=== PATIENT | male | born 1950 | race African-American/Black ===

== ENCOUNTER 2020-12-21 12:23 | Inpatient (IN) | payer MEDICARE, MEDICAID ==
[~2020-12-21] VITALS: Ht 182.9 cm; Wt 81.2 kg
[2020-12-21 15:26] LABS: BASOPHILS % 0.7 % (0.0-2.0); EOSINOPHILS % 3.4 % (0.0-5.0); HEMATOCRIT. 36.9 % (42.0-52.0); HEMOGLOBIN. 11.9 g/dL (14.0-18.0); MEAN CORPUSCULAR HEMOGLOBIN 30.4 pg (28.0-32.0); MEAN PLATELET VOLUME 9.2 fl (7.4-10.4); MONOCYTES % 13.1 % (2.0-8.0); NEUTROPHILS % 63.8 % (40.0-76.0); PLATELET 179 x1000/uL (130-400); RED BLOOD CELL COUNT 3.93 mill/uL (4.7-6.1); RED CELL DISTRIBUTION WIDTH 19.2 % (11.6-14.6)
[2020-12-21 15:31] LABS: CHLORIDE 113 mEq/L (98-107)
[2020-12-21 15:49] LABS: INR 1.1; PROTHROMBIN TIME 11.7 sec (9.6-11.0)
[2020-12-21] MEDS ORDERED: SODIUM CHLORIDE 0.9% 1,000 ML IV ONE (16:00)
[2020-12-21] MEDS ORDERED: DILTIAZEM HCL 5MG/ML 5ML VIAL IV ONE (16:15)
[2020-12-21] MEDS ORDERED: DILTIAZEM HCL 90MG TABLET PO ONE (16:15)
[2020-12-21 16:18] LABS: CLARITY URINE CLEAR (CLEAR); COLOR URINE YELLOW (YELLOW); KETONES URINE TRACE (NEGATIVE); LEUKOCYTE ESTERASE URINE 1+ (NEGATIVE); NITRITE URINE POSITIVE (NEGATIVE); OCCULT BLOOD URINE NEGATIVE (NEGATIVE); PROTEIN URINE 2+ (NEGATIVE); UROBILINOGEN URINE 0.2 E.U./dL (0.2-1.0)
[2020-12-21] MEDS ORDERED: ASPIRIN 81MG TABLET PO ONE (20:15)
[2020-12-21] MEDS ORDERED: DOCUSATE SODIUM 100MG CAPSULE PO PRN (21:15)
[2020-12-21] MEDS ORDERED: ONDANSETRON HCL 4MG/2ML INJ IV PRN (21:15)
[2020-12-21] MEDS ORDERED: GUAIFENESIN 200MG/10ML SUGAR FREE UDC PO PRN (21:15)
[2020-12-21] MEDS ORDERED: CLONIDINE 0.1MG TABLET PO PRN (21:15)
[2020-12-21] MEDS ORDERED: ACETAMINOPHEN 325MG TABLET PO PRN (21:15)
[2020-12-21] MEDS ORDERED: MAGNESIUM/ALUMINUM HYDROXIDE/SIMETHICONE 30ML UDC PO PRN (21:15)
[2020-12-21] MEDS: AZITHROMYCIN 500 MG in DEXT 5% WATER 250 ML IV SCH (22:00)
[2020-12-22] MEDS: MULTIVITAMINS,THER W-MINERALS TABLET PO SCH ×2 (00:44→10:25)
[2020-12-22] MEDS: ENOXAPARIN 40MG/0.4ML SYR SUBCUT SCH (00:45)
[2020-12-22] MEDS: CEFTRIAXONE 1 G PREMIX 50 ML IV SCH ×2 (00:45→01:07)
[2020-12-22] MEDS: SODIUM CHLORIDE 0.9% 1,000 ML IV SCH ×2 (00:46→10:27)
[2020-12-22] MEDS: THIAMINE HCL 100MG TABLET PO SCH ×2 (00:46→09:00)
[2020-12-22] MEDS: LORAZEPAM 2MG/ML CPJ IV PRN (00:47)
[2020-12-22 04:59] LABS: CHLORIDE 115 mEq/L (98-107)
[2020-12-22 05:09] LABS: HDL CHOLESTEROL 44 mg/dL (40-59)
[2020-12-22 05:10] LABS: LDL CHOLESTEROL 75 mg/dL (5-100)
[2020-12-22] MEDS ORDERED: ASPIRIN 81MG EC TABLET PO SCH (09:00)
[2020-12-22] MEDS ORDERED: METOPROLOL TARTRATE 25MG TABLET PO SCH (09:00)
[2020-12-22] MEDS: FOLIC ACID 1MG TABLET PO SCH (10:25)
[2020-12-23] MEDS: FUROSEMIDE 40MG/4ML VIAL IVP SCH ×3 (00:31→17:53)
[2020-12-23] MEDS: SODIUM CHLORIDE 0.9% 1,000 ML IV SCH ×3 (00:48→21:25)
[2020-12-23] MEDS: AZITHROMYCIN 500 MG in DEXT 5% WATER 250 ML IV SCH ×2 (00:49→23:58)
[2020-12-23] MEDS: ENOXAPARIN 40MG/0.4ML SYR SUBCUT SCH ×2 (00:57→21:24)
[2020-12-23] MEDS: PANTOPRAZOLE 40MG DR TABLET PO SCH ×3 (01:37→21:24)
[2020-12-23] MEDS: LORAZEPAM 2MG/ML CPJ IV PRN ×2 (02:49→21:14)
[2020-12-23 08:30] VITALS: BP 133/98
[2020-12-23] MEDS ORDERED: METOPROLOL TARTRATE 25MG TABLET PO SCH (09:00)
[2020-12-23] MEDS: CEFTRIAXONE 1,000 MG in DEXTROSE 5% WATER 50 ML IV SCH (10:08)
[2020-12-23] MEDS: THIAMINE HCL 100MG TABLET PO SCH (10:08)
[2020-12-23] MEDS: FOLIC ACID 1MG TABLET PO SCH (10:09)
[2020-12-23] MEDS: MULTIVITAMINS,THER W-MINERALS TABLET PO SCH (10:09)
[2020-12-23 12:00] VITALS: BP_SYST 119; BP_SYST 133; BP_DIAS 89; BP_DIAS 98
[2020-12-23] MEDS: METOPROLOL TARTRATE 50MG TABLET PO SCH ×2 (15:07→21:24)
[2020-12-23 16:00] VITALS: BP 121/94
[2020-12-23 18:34] LABS: CHLORIDE 111 mEq/L (98-107)
[2020-12-23 20:00] VITALS: BP 114/82
[2020-12-23] MEDS ORDERED: PNEUMOCOCCAL 23-VAL P-SAC VAC 0.5 ML IM ONE (20:30)
[2020-12-23 21:04] LABS: VITAMIN B12 SERUM 593 pg/mL (211-911)
[2020-12-24] VITALS (7 sets, daily range): BP systolic 114–137; BP diastolic 82–99
[2020-12-24] MEDS: LORAZEPAM 2MG/ML CPJ IV PRN ×4 (01:16→22:34)
[2020-12-24] MEDS: FUROSEMIDE 40MG/4ML VIAL IVP SCH (05:14)
[2020-12-24] MEDS: PANTOPRAZOLE 40MG DR TABLET PO SCH ×2 (05:41→20:27)
[2020-12-24] MEDS: CEFTRIAXONE 1,000 MG in DEXTROSE 5% WATER 50 ML IV SCH (09:04)
[2020-12-24] MEDS: MULTIVITAMINS,THER W-MINERALS TABLET PO SCH (09:05)
[2020-12-24] MEDS: THIAMINE HCL 100MG TABLET PO SCH (09:05)
[2020-12-24] MEDS: METOPROLOL TARTRATE 50MG TABLET PO SCH ×2 (09:05→20:27)
[2020-12-24] MEDS: FOLIC ACID 1MG TABLET PO SCH (09:05)
[2020-12-24] MEDS: FUROSEMIDE 40MG TABLET PO SCH (18:21)
[2020-12-24] MEDS: SODIUM CHLORIDE 0.9% 1,000 ML IV SCH (18:21)
[2020-12-24] MEDS: ENOXAPARIN 40MG/0.4ML SYR SUBCUT SCH (20:27)
[2020-12-24] MEDS: AZITHROMYCIN 500 MG in DEXT 5% WATER 250 ML IV SCH (23:01)
[2020-12-24] MEDS: DIPHENHYDRAMINE 50MG/ML VIAL IV PRN (23:21)
[2020-12-25] VITALS: BP 131/81
[2020-12-25] MEDS: SODIUM CHLORIDE 0.9% 1,000 ML IV SCH ×2 (01:44→18:52)
[2020-12-25] MEDS: LORAZEPAM 2MG/ML CPJ IV PRN ×4 (03:27→20:37)
[2020-12-25 04:00] VITALS: BP 142/78
[2020-12-25] MEDS: FUROSEMIDE 40MG TABLET PO SCH ×2 (05:07→18:51)
[2020-12-25] MEDS: PANTOPRAZOLE 40MG DR TABLET PO SCH ×2 (05:40→21:03)
[2020-12-25] MEDS: METOPROLOL TARTRATE 5MG/5ML VIAL IV SCH ×2 (06:08→11:29)
[2020-12-25 08:00] VITALS: BP 120/100
[2020-12-25] MEDS: MULTIVITAMINS,THER W-MINERALS TABLET PO SCH (10:28)
[2020-12-25] MEDS: FOLIC ACID 1MG TABLET PO SCH (10:28)
[2020-12-25] MEDS: THIAMINE HCL 100MG TABLET PO SCH (10:28)
[2020-12-25] MEDS ORDERED: METOPROLOL TARTRATE 25MG TABLET PO NR (10:44)
[2020-12-25] MEDS ORDERED: METOPROLOL TARTRATE 5MG/5ML VIAL IV PRN (11:15)
[2020-12-25 12:00] VITALS: BP 135/104
[2020-12-25] MEDS ORDERED: DILTIAZEM HCL 30MG TABLET PO SCH (12:00)
[2020-12-25] MEDS: CEFTRIAXONE 1,000 MG in DEXTROSE 5% WATER 50 ML IV SCH (13:33)
[2020-12-25 16:00] VITALS: BP 130/88
[2020-12-25 20:00] VITALS: BP 141/83
[2020-12-25] MEDS: ENOXAPARIN 40MG/0.4ML SYR SUBCUT SCH (21:03)
[2020-12-25] MEDS: METOPROLOL TARTRATE 50MG TABLET PO SCH (21:04)
[2020-12-25] MEDS: AZITHROMYCIN 500 MG in DEXT 5% WATER 250 ML IV SCH (22:08)
[2020-12-26] VITALS: BP 122/99
[2020-12-26] MEDS: LORAZEPAM 2MG/ML CPJ IV PRN ×3 (00:39→11:29)
[2020-12-26 04:00] VITALS: BP 134/89
[2020-12-26] MEDS: FUROSEMIDE 40MG TABLET PO SCH ×2 (05:45→17:01)
[2020-12-26] MEDS: PANTOPRAZOLE 40MG DR TABLET PO SCH ×2 (05:45→21:28)
[2020-12-26] MEDS: SODIUM CHLORIDE 0.9% 1,000 ML IV SCH ×2 (05:46→21:32)
[2020-12-26 08:00] VITALS: BP 138/95
[2020-12-26] MEDS: MULTIVITAMINS,THER W-MINERALS TABLET PO SCH (08:59)
[2020-12-26] MEDS: THIAMINE HCL 100MG TABLET PO SCH (08:59)
[2020-12-26] MEDS: FOLIC ACID 1MG TABLET PO SCH (08:59)
[2020-12-26] MEDS: DIPHENHYDRAMINE 50MG/ML VIAL IV PRN ×2 (09:03→15:37)
[2020-12-26] MEDS: METOPROLOL TARTRATE 50MG TABLET PO SCH (09:05)
[2020-12-26 12:00] VITALS: BP 146/89
[2020-12-26] MEDS ORDERED: DIGOXIN 500MCG/2ML AMP IV NR (13:00)
[2020-12-26] MEDS: METOPROLOL TARTRATE 100MG TABLET PO SCH ×2 (14:04→21:29)
[2020-12-26 16:00] VITALS: BP_SYST 137; BP_DIAS 90; BP_DIAS 91
[2020-12-26 20:00] VITALS: BP 116/95
[2020-12-26] MEDS: ATORVASTATIN CALCIUM 40MG TABLET PO SCH (21:28)
[2020-12-26] MEDS: ENOXAPARIN 40MG/0.4ML SYR SUBCUT SCH (21:29)
[2020-12-26] MEDS ORDERED: AMIODARONE HCL 200 MG TABLET PO NR (23:00)
[2020-12-26] MEDS ORDERED: AMIODARONE HCL 150 MG in DEXT 5% WATER 100 ML IV NR (23:30)
[2020-12-27] VITALS: BP 133/100
[2020-12-27] MEDS ORDERED: POTASSIUM CHLORIDE 20MEQ/PACKET PO NR (01:15)
[2020-12-27] MEDS ORDERED: MAGNESIUM 2 G PREMIX 50 ML IV ONE (02:00)
[2020-12-27] MEDS: FUROSEMIDE 40MG TABLET PO SCH (05:50)
[2020-12-27] MEDS: PANTOPRAZOLE 40MG DR TABLET PO SCH ×2 (05:50→23:24)
[2020-12-27 08:00] VITALS: BP 128/100
[2020-12-27] MEDS ORDERED: AMIODARONE HCL 900 MG in DEXT 5% WATER 482 ML IV SCH (08:30)
[2020-12-27] MEDS: MULTIVITAMINS,THER W-MINERALS TABLET PO SCH (09:13)
[2020-12-27] MEDS: ASPIRIN 81MG TABLET PO SCH (09:13)
[2020-12-27] MEDS: FOLIC ACID 1MG TABLET PO SCH (09:13)
[2020-12-27] MEDS: THIAMINE HCL 100MG TABLET PO SCH (09:13)
[2020-12-27] MEDS: AMIODARONE HCL 200 MG TABLET PO SCH ×2 (09:14→23:25)
[2020-12-27] MEDS: SODIUM CHLORIDE 0.9% 1,000 ML IV SCH (09:14)
[2020-12-27] MEDS: METOPROLOL TARTRATE 100MG TABLET PO SCH ×2 (09:18→23:25)
[2020-12-27] MEDS ORDERED: LORAZEPAM 2MG/ML CPJ IV PRN (11:45)
[2020-12-27 12:00] VITALS: BP 116/76
[2020-12-27 16:00] VITALS: BP 114/82
[2020-12-27 20:00] VITALS: BP 129/89
[2020-12-27] MEDS: ATORVASTATIN CALCIUM 40MG TABLET PO SCH (23:25)
[2020-12-27] MEDS: ENOXAPARIN 40MG/0.4ML SYR SUBCUT SCH (23:26)
[2020-12-28] VITALS: BP 127/90
[2020-12-28 04:00] VITALS: BP 139/90
[2020-12-28] MEDS: PANTOPRAZOLE 40MG DR TABLET PO SCH (06:00)
[2020-12-28 08:00] VITALS: BP 115/87
[2020-12-28] MEDS ORDERED: FUROSEMIDE 40MG TABLET PO SCH (09:00)
[2020-12-28] MEDS ORDERED: APIXABAN 2.5 MG TABLET PO SCH (10:00)
[2020-12-28] MEDS ORDERED: APIXABAN 5 MG TABLET PO SCH (10:01)
[2020-12-28] MEDS: AMIODARONE HCL 200 MG TABLET PO SCH (10:14)
[2020-12-28] MEDS: ASPIRIN 81MG TABLET PO SCH (10:14)
[2020-12-28] MEDS: THIAMINE HCL 100MG TABLET PO SCH (10:16)
[2020-12-28] MEDS: MULTIVITAMINS,THER W-MINERALS TABLET PO SCH (10:16)
[2020-12-28] MEDS: FOLIC ACID 1MG TABLET PO SCH (10:20)
[2020-12-28] MEDS: METOPROLOL TARTRATE 100MG TABLET PO SCH (10:20)
[2020-12-28 12:39] VITALS: BP 115/87
== END 2020-12-28 13:20 | DRG 871 ==
LOC: ER 12:33 → EDBEDREQ 16:15 → EDBEDREQTM 16:15 → EDBEDREQSVC 16:15 → MICUSO 19:46 → EDBEDREQSVC 20:26 → EDBEDREQ 20:26 → EDBEDREQTM 20:26 → 7EST 12-22 20:21 → MICUSO 12-22 22:45 → 7EST 12-22 23:38 → MICUSO 12-22 23:39 → 7EST 12-23 07:24
PROVIDERS: ADMIT Hospitalist; ATTEND Hospitalist
DX: A41.9 Sepsis, unspecified organism (principal); I50.23 Acute on chronic systolic (congestive) heart failure; N39.0 Urinary tract infection, site not specified; I48.19 Other persistent atrial fibrillation; N17.9 Acute kidney failure, unspecified; I47.2 Ventricular tachycardia; G93.49 Other encephalopathy; E86.0 Dehydration; F01.50 Vascular dementia, unspecified severity, without behavioral disturbance, psychotic disturbance, mood disturbance, and anxiety; D64.9 Anemia, unspecified; G93.89 Other specified disorders of brain; I11.0 Hypertensive heart disease with heart failure; Z20.822 Contact with and (suspected) exposure to COVID-19; I27.20 Pulmonary hypertension, unspecified; M19.90 Unspecified osteoarthritis, unspecified site; R62.7 Adult failure to thrive; Z82.49 Family history of ischemic heart disease and other diseases of the circulatory system; Z86.73 Personal history of transient ischemic attack (TIA), and cerebral infarction without residual deficits; Z87.891 Personal history of nicotine dependence; Z78.1 Physical restraint status; Z85.46 Personal history of malignant neoplasm of prostate; Z68.24 Body mass index [BMI] 24.0-24.9, adult
CPT/HCPCS: 36415; 70551; 71045; 80048; 80053; 80061; 81003; 82607; 82962; 83735; 83880; 84443; 84484; 85025; 87426; 93005; 93306; 93880; 93970; 95816; 97110; 97162; 97166; 97530; 99291; C1893; J0282; J0456; J0696; J1160; J1200; J1650; J1940; J2060; J3475; J3490; J7030; J7060; U0003; U0005

== ENCOUNTER → 2021-04-01 | Outpatient (CLI) | payer MEDICARE, MEDICAID | END | disposition home or self-care (01) | LOC: MRI 09:19 | PROVIDERS: ATTEND Hospitalist | DX: M19.032 Primary osteoarthritis, left wrist (principal); M25.432 Effusion, left wrist; M71.532 Other bursitis, not elsewhere classified, left wrist; M65.88 Other synovitis and tenosynovitis, other site | CPT/HCPCS: 73221 ==